=== PATIENT | male | born 1955 | race Caucasian/White ===

== ENCOUNTER 2016-11-23 11:42 | Emergency (ER) | payer OTHER ==
[~2016-11-23] VITALS: Ht 180.3 cm; Wt 95.0 kg
[~2016-11-23 11:42] MED LIST: CEPH500C3 PO; CLOP75 PO; METO50TA PO; ZOCO80TA PO
[2016-11-23 11:44] VITALS: BP 157/76; PULSE 59; RESP 20; TEMP 97.7; O2SAT 95
[2016-11-23] MEDS ORDERED: METO50TA PO (12:09)
[2016-11-23] MEDS ORDERED: SIMV80TA PO (12:09)
[2016-11-23] MEDS ORDERED: KETOROLAC TROMETHAMINE 30 MG/ML (IVP) VIAL IV PUSH ONE (12:15)
[2016-11-23] MEDS ORDERED: ceFAZolin 2 GM PREMIX 50 ML IV ONE (12:15)
[2016-11-23 12:44] LABS: AUTOMATED NEUTROPHIL # 6.4 TH/MM3 (1.8-7.7); BASOPHIL # 0.1 TH/MM3 (0-0.2); BASOPHIL % 0.7 % (0.0-2.0); EOSINOPHIL # 0.3 TH/MM3 (0-0.4); EOSINOPHIL % 3.1 % (0.0-4.0); HEMATOCRIT 43.5 % (39.0-51.0); HEMO FLAGS DIFF FINAL; LYMPH % 21.5 % (9.0-44.0); MEAN CELL VOLUME 88.1 FL (80.0-100.0); MEAN CORPUSCULAR HEMOGLOBIN 30.1 PG (27.0-34.0); MEAN CORPUSCULAR HGB CONC 34.2 % (32.0-36.0); MONO % 7.1 % (0.0-8.0); NEUT % 67.6 % (16.0-70.0); PLATELET COUNT 198 TH/MM3 (150-450); RED BLOOD COUNT 4.94 MIL/MM3 (4.50-5.90); WHITE BLOOD COUNT 9.4 TH/MM3 (4.0-11.0)
--- NOTE | 2016-11-23 12:51 | RADRPT ---
EXAM DATE/TIME: 11/23/2016 12:25 [facility] COMPARISON: No previous studies available for comparison. INDICATIONS : Laceration top of hand. MEDICAL HISTORY : None. SURGICAL HISTORY : None. ENCOUNTER: Initial ACUITY: 1 day PAIN SCORE: 7/10 LOCATION: Left upper extremity FINDINGS: Three view examination of the left hand demonstrates soft tissue swelling without dislocation or frac ture. Radiopaque density dorsally appears to be calcified. No definite foreign body. The carpal bon es appear intact. Prominent degenerative changes visible in the first carpal metacarpal joint. The i nterphalangeal and metacarpophalangeal joints are intact. Bony mineralization is normal. CONCLUSION: Soft tissue swelling. Calcified density posteriorly likely related to old injury. Petr Stephens MD on November 23, 2016 at 12:46 Board Certified Radiologist. This report was verified electronically.
[2016-11-23 13:04] LABS: BICARBONATE 27.5 MEQ/L (21.0-32.0)
--- NOTE | 2016-11-23 14:27 | PD ---
HPI Chief Complaint: Laceration/Skin Injury Time Seen by Provider: 11:56 Travel History International Travel<30 days: No Contact w/Intl Traveler<30days: No Traveled to known affect area: No History of Present Illness HPI 61-year-old male came to the emergency room with history of hand laceration from an old metal wheel that he had put on the saw grinder and it broke and a piece came flying on his left hand. This happened just prior to coming to the emergency room. He was bleeding and he is unable to make a fist. Patient says his last tetanus was one year ago. He does have some pain. He is otherwise a healthy person. He was bleeding quite a bit and had a bandage put in at triage. [facility] Past Medical History Narrative Medical List of her past medical history as reviewed from the nursing note. Cardiac Catheterization: Yes (ANGIOPLASTY) Cardiovascular Problems: Yes High Cholesterol: Yes Diminished Hearing: No Hypertension: Yes Influenza Vaccination: No Social History Alcohol Use: Yes (2-3 BEERS DAILY) Tobacco Use: No Substance Use: No Allergies-Medications (Allergen,Severity, Reaction): Coded Allergies: No Known Allergies (Verified , 11/23/16) Comments No known drug allergies. Reported Meds & Prescriptions Reported Meds & Active Scripts Active Ibuprofen 600 Mg Tab 600 Mg PO Q6H PRN Bactrim DS (Sulfamethoxazole-Trimethoprim) 800-160 Mg Tab 1 Tab PO BID Reported Simvastatin 80 Mg Tab 80 Mg PO DAILY Metoprolol Tartrate 50 Mg Tab 50 Mg PO BID Narrative Medication List of his home medications reviewed from the nursing note. Review of Systems Except as stated in HPI: all other systems reviewed are Neg Physical Exam Narrative GENERAL: Awake, alert, anxious, moderate distress SKIN: Warm and dry. Left dorsum of the middle finger knuckle of the MCP joint there is a 3.5-4 cm laceration vertically. The edges are jagged and it's a deep laceration. There is no active bleeding right now. The extensor tendon is 100% lacerated and the distal tip is visualized from the laceration. The MCP joint can be seen and the head of the third metacarpal cartilage is visible. Patient is unable to flex his finger. He is holding it in an extended position at the MCP and PIP joint. HEAD: Atraumatic. Normocephalic. EYES: Pupils equal and round. No scleral icterus. No injection or drainage. ENT: No nasal bleeding or discharge. Mucous membranes pink and moist. NECK: Trachea midline. No JVD. CARDIOVASCULAR: Regular rate and rhythm. No murmur appreciated. RESPIRATORY: No accessory muscle use. Clear to auscultation. Breath sounds equal bilaterally. GASTROINTESTINAL: Abdomen soft, non-tender, nondistended. Hepatic and splenic margins not palpable. MUSCULOSKELETAL: No obvious deformities. No clubbing. No cyanosis. No edema. NEUROLOGICAL: Awake and alert. No obvious cranial nerve deficits. Motor grossly within normal limits. Normal speech. PSYCHIATRIC: Appropriate mood and affect; insight and judgment normal. Data Data Last Documented VS Vital Signs Date Time Temp Pulse Resp B/P Pulse Ox O2 Delivery O2 Flow Rate FiO2 11/23/16 11:44 97.7 59 20 157/76 95 Room Air Orders Basic Metabolic Panel (Bmp) (11/23/16 12:10) Complete Blood Count With Diff (11/23/16 12:10) Iv Access Insert/Monitor (11/23/16 12:10) Cefazolin 2 Gm Premix (Ancef 2 Gm Premix (11/23/16 12:15) Hand, Complete ([id number]) (11/23/16 ) Ketorolac Inj (Toradol Inj) (11/23/16 12:15) Lidocai-Epi 2%-1:100,000 Inj (Xylocaine- (11/23/16 14:35) Labs Laboratory Tests Test 11/23/16 12:15 White Blood Count 9.4 TH/MM3 Red Blood Count 4.94 MIL/MM3 Hemoglobin 14.9 GM/DL Hematocrit 43.5 % Mean Corpuscular Volume 88.1 FL Mean Corpuscular Hemoglobin 30.1 PG Mean Corpuscular Hemoglobin 34.2 % Concent Red Cell Distribution Width 14.0 % Platelet Count 198 TH/MM3 Mean Platelet Volume 8.8 FL Neutrophils (%) (Auto) 67.6 % Lymphocytes (%) (Auto) 21.5 % Monocytes (%) (Auto) 7.1 % Eosinophils (%) (Auto) 3.1 % Basophils (%) (Auto) 0.7 % Neutrophils # (Auto) 6.4 TH/MM3 Lymphocytes # (Auto) 2.0 TH/MM3 Monocytes # (Auto) 0.7 TH/MM3 Eosinophils # (Auto) 0.3 TH/MM3 Basophils # (Auto) 0.1 TH/MM3 CBC Comment DIFF FINAL Differential Comment Sodium Level 141 MEQ/L Potassium Level 4.0 MEQ/L Chloride Level 106 MEQ/L Carbon Dioxide Level 27.5 MEQ/L Anion Gap 8 MEQ/L Blood Urea Nitrogen 11 MG/DL Creatinine 1.06 MG/DL Estimat Glomerular Filtration 71 ML/MIN Rate Random Glucose 111 MG/DL Calcium Level 9.1 MG/DL MDM Medical Decision Making Medical Screen Exam Complete: Yes Emergency Medical Condition: Yes Medical Record Reviewed: Yes Differential Diagnosis Extensor tendon laceration, complex laceration of the hand, metacarpal fracture , fracture of the phalanx, violation of the joint capsule Narrative Course 2:33 PM I spoke with the hand surgeon after the x-ray was resulted. I described to him the wound and the findings. He was on his way to see the patient and actually he is here and doing a repair in the room. Patient was given 2 g of Ancef IV. Patient will be discharged after the repair is done. Procedures EKG Prior to Arrival: No Diagnosis Primary Impression: Extensor tendon laceration of hand with open wound Qualified Code: S66.822A - Extensor tendon laceration of hand with open wound , left, initial encounter Referrals: Whitney Mitchell MD 1 week Additional Instructions: Follow-up with Dr. Mitchell on Friday at the number and address is provided to you. Keep the splint clean and dry. Please return to the ER if the condition worsens or any other new concerns. Med/Other Pt SpecificInfo: Prescription(s) given Scripts Ibuprofen 600 Mg [id number] Mg PO Q6H PRN (Pain/Inflammation) #40 TAB Ref 0 Prov:Aric Rowell MD 11/23/16 Sulfamethoxazole-Trimethoprim (Bactrim DS)800-160 Mg Tab1 Tab PO BID #20 TAB Ref 0 Prov:Aric Rowell MD 11/23/16 Disposition: 01 DISCHARGE HOME Condition: Stable Aric Rowell MD Nov 23, 2016 14:27
[2016-11-23] MEDS ORDERED: LIDOCAINE 2%/EPINEPHrine 1:100,000 50ML MDV ONE (14:35)
[2016-11-23] MEDS ORDERED: BACT800T5 PO (16:06)
[2016-11-23] MEDS ORDERED: IBUP-232 PO (16:07)
--- NOTE | 2016-11-23 19:05 | MB ---
cc: RAINE GILES M.D.,ARIC Abbasi MD DATE OF CONSULTATION: 11/23/2016. REASON FOR CONSULTATION: Injury to the left hand. REQUESTING PHYSICIAN: The patient is being seen at the request of Dr. Aric Rowell. HISTORY OF PRESENT ILLNESS: The patient is 61-year-old male who was working with an old plate glass grinder which broke apart as he began to use it lacerating his left hand. It was noted that the joint was entered and at the tendon was lacerated. Consultation was requested regarding evaluation and treatment of the wound. PAST MEDICAL HISTORY: 1. The patient has a history of cardiac disease which had angioplasty. 2. He has hypercholesterolemia. 3. Hypertension. SOCIAL HISTORY: The patient drinks two to three beers per day. Denies alcohol or drug abuse. ALLERGIES: NO KNOWN FOOD OR DRUG ALLERGIES. MEDICATIONS: His medications are listed on the chart. REVIEW OF SYSTEMS: His review of systems is negative in twelve systems except as noted above. PHYSICAL EXAMINATION: GENERAL: On examination, the patient is lying comfortably on the stretcher. HEAD, EYES, EARS, NOSE, THROAT: His extraocular muscles are intact. His pupils are equal, round and reactive to light. His mouth is clear. NECK: His neck is supple without masses. LUNGS: Clear. HEART: Regular rate and rhythm. UPPER EXTREMITIES: Examination of his upper extremities reveals a 4.5 cm longitudinal laceration on the dorsal aspect of his left hand. The laceration is on the radial side of the third finger. Exploration of the wound gently reveals significant contamination with bits of the broken plate glass grinder wheel and a laceration to the extensor tendon including the sagittal fibers and the distal extensor tendon. The finger itself is well-perfused. IMAGING STUDIES: X-rays were reviewed. This reveals an avulsion of some of the tissue dorsally and no injury to the head of the metacarpal or foreign material is seen. IMPRESSION: Open wound of the left hand with extensor tendon injury, joint capsule injury and tissue avulsion with significant contamination. PLAN: The patient will be treated in the emergency room. Raine Giles MD Ingrid/FRANSICO /4:42 PM /6:49 PM
--- NOTE | 2016-11-26 11:06 | MP ---
cc: RAINE GILES M.D. DATE OF SURGERY: 11/23/2016 PREOPERATIVE DIAGNOSIS: Open wound, left hand with bony injuries significant contamination and joint capsule injury. POSTOPERATIVE DIAGNOSIS: Open wound, left hand with bony injuries significant contamination and joint capsule injury. OPERATION: 1. Exploration of left hand wound. 2. Removal of contaminated material with removal of several foreign bodies. 3. Repair of joint capsule. 4. Repair of extensor tendon. 5. Repair of sagittal fibers. 6. Debridement of the wound with complex repair of 4.5 cm's. ANESTHESIA: Local. SURGEON Dr. Giles INDICATIONS 61-year-old male who injured his hand at home. Findings at the completion of the procedure the joint capsule had been repaired all foreign material was removed. The sagittal fibers were repaired and the extensor tendon was repaired the wound edges were debrided completely of devitalized tissue and repaired. Operative time was approximately one hour. PROCEDURE: The operation was performed in the emergency room. The patient was in a supine position. The left hand was prepped with Betadine and draped in usual sterile fashion. Lidocaine 2% with epinephrine 1:100,000 was injected into and around the wound. Once anesthetic had taken effect the wound was copiously irrigated with saline. The foreign material was debrided. It was curetted out of the bone. The devitalized tendon was removed as well as the edges of the wound were completely excised. After the wound was cleansed the repair was effected with a 4-0 Mersilene to repair the capsule of the extensor tendon and the sagittal fibers and the skin was closed with 5-0 nylon. Once the wound was closed, hand was cleansed of Betadine and blood placed in into an extended position. After cleansing the hand placing povidone-iodine ointment of the wound along with Telfa, 4x4s hand wrap and a palmar splint to keep the wrist and fingers extended. The patient was then given back to the care of the ER staff of the recommendations for several days of oral antibiotics pain medicine including 800 mg of ibuprofen every 8 hours and follow up in my office in 4 days. The patient is advised to keep his hand elevated, keeping it clean and dry and take anti-inflammatories as recommended. He is to call us if there are any questions or problems. MD ELLA Alberto/elif /4:47 PM /10:44 AM
== END 2016-11-23 17:01 | disposition home or self-care (01) ==
LOC: NEPE 11:42
DX: S66.323A Laceration of extensor muscle, fascia and tendon of left middle finger at wrist and hand level, initial encounter (principal); S61.422A Laceration with foreign body of left hand, initial encounter; E78.00 Pure hypercholesterolemia, unspecified; I10 Essential (primary) hypertension; W31.1XXA Contact with metalworking machines, initial encounter; Y93.89 Activity, other specified; Y92.9 Unspecified place or not applicable
CPT/HCPCS: 11044; 26418; 73130; 80048; 85025; 96365; 96375; 99283; J0690; J1885; 13132

== ENCOUNTER 2017-12-31 11:44 | Observation (INO) | payer OTHER ==
[~2017-12-31 11:44] MED LIST changes: -CEPH500C3 PO; -CLOP75 PO; +SIMV80TA PO; -ZOCO80TA PO
[2017-12-31 12:04] VITALS: BP 178/81; PULSE 63; RESP 18; TEMP 98.9; O2SAT 100
--- NOTE | 2017-12-31 12:34 | RADRPT ---
EXAM DATE/TIME: 12/31/2017 12:21 [facility] COMPARISON: No previous studies available for comparison. INDICATIONS : Positional vertigo RADIATION DOSE: 56.35 CTDIvol (mGy) MEDICAL HISTORY : Cardiovascular disease. Hypertension. SURGICAL HISTORY : None. ENCOUNTER: Initial ACUITY: 1 day PAIN SCALE: 0/10 LOCATION: cranial TECHNIQUE: Multiple contiguous axial images were obtained of the head. Using automated exposure control and adj ustment of the mA and/or kV according to patient size, radiation dose was kept as low as reasonably a chievable to obtain optimal diagnostic quality images. DICOM format image data is available electro nically for review and comparison. FINDINGS: There is mild symmetric cortical atrophy. No evidence of mass or hemorrhage. Nothing to suggest acute infarction. Ventricles are symmetric and normal. Brainstem and posterior fossa structures are normal . Extracranial structures are benign with mild mucosal sinus disease and occasional facial sinuses. CONCLUSION: No acute intracranial findings Usman Doherty MD on December 31, 2017 at 12:29 Board Certified Radiologist. This report was verified electronically.
[2017-12-31] MEDS ORDERED: AMLO10TA2 PO (13:07)
[2017-12-31] MEDS ORDERED: ASPI81CH6 CHEW (13:07)
[2017-12-31 13:39] LABS: AUTOMATED NEUTROPHIL # 6.2 TH/MM3 (1.8-7.7); BASOPHIL # 0.1 TH/MM3 (0-0.2); BASOPHIL % 0.8 % (0.0-2.0); EOSINOPHIL # 0.4 TH/MM3 (0-0.4); EOSINOPHIL % 3.9 % (0.0-4.0); HEMATOCRIT 44.6 % (39.0-51.0); HEMOGLOBIN 15.3 GM/DL (13.0-17.0); LYMPH % 28.9 % (9.0-44.0); MEAN CELL VOLUME 89.3 FL (80.0-100.0); MEAN CORPUSCULAR HEMOGLOBIN 30.6 PG (27.0-34.0); MEAN CORPUSCULAR HGB CONC 34.3 % (32.0-36.0); MEAN PLATELET VOLUME 8.6 FL (7.0-11.0); MONO % 6.8 % (0.0-8.0); MONOCYTE # 0.7 TH/MM3 (0-0.9); NEUT % 59.6 % (16.0-70.0); PLATELET COUNT 218 TH/MM3 (150-450); WHITE BLOOD COUNT 10.3 TH/MM3 (4.0-11.0)
[2017-12-31 13:42] LABS: BILIRUBIN, URINE NEG (NEG); BLOOD, URINE NEG (NEG); GLUCOSE,URINE NEG (NEG); KETONE, URINE NEG (NEG); NITRITE,URINE NEG (NEG); PH, URINE 5.5 (5.0-8.5); URINE COLOR LIGHT-YELLOW (YELLW/STRAW); URINE LEUKOCYTE ESTERASE NEG (NEG)
[2017-12-31 13:48] LABS: INTERNATIONAL NORMALIZED RATIO 1.1 RATIO; PROTHROMBIN TIME - PATIENT 10.7 SEC (9.8-11.6)
[2017-12-31 13:57] LABS: ALT (GPT) 28 U/L (12-78)
[2017-12-31 13:59] LABS: ALBUMIN 4.4 GM/DL (3.4-5.0); AST (GOT) 21 U/L (15-37); BICARBONATE 28.1 MEQ/L (21.0-32.0); BLOOD UREA NITROGEN 12 MG/DL (7-18); CALCIUM 9.3 MG/DL (8.5-10.1); CHLORIDE 104 MEQ/L (98-107); CREATININE 0.97 MG/DL (0.60-1.30); GLOMERULAR FILTRATION RATE 78 ML/MIN (>89); GLUCOSE,RANDOM 98 MG/DL (74-106); MAGNESIUM 2.3 MG/DL (1.5-2.5); SODIUM (NA) 140 MEQ/L (136-145)
[2017-12-31 14:00] LABS: ALKALINE PHOSPHATASE 84 U/L (45-117); TOTAL PROTEIN 8.2 GM/DL (6.4-8.2); TROPONIN I LESS THAN 0.02 NG/ML (0.02-0.05)
[2017-12-31] MEDS ORDERED: ASPIRIN 325 MG TAB PO ONE (14:45)
--- NOTE | 2017-12-31 14:48 | PD ---
HPI Chief Complaint: Dizziness Time Seen by Provider: 14:16 Travel History International Travel<30 days: No Contact w/Intl Traveler<30days: No Traveled to known affect area: No History of Present Illness HPI 62-year-old male that presents to the ED for evaluation of dizziness and possible cardiac complaint. Per patient he has a history of previous ACS. Per patient on 2007 when he had similar symptoms he ended up having a heart attack that required ballooning. Per patient his been having dizziness with movement of the head as well as with standing. Per patient he has not had any chest pressure or pain today but she is has had in the past. Per patient the symptoms have been worsening for the past month and [facility] comes here to get evaluated. Per patient he is never had a stress test. He currently has no chest pain. Patient did took 2 aspirins today. Patient has a history of high cholesterol. Family history of heart disease. All history of smoking. Denies any headache. No blurry vision or double vision. No urinary or bowel movement issues. No other medical issues at this time. PFSH Past Medical History Cardiac Catheterization: Yes (ANGIOPLASTY) Cardiovascular Problems: Yes High Cholesterol: Yes Diminished Hearing: No Hypertension: Yes Social History Alcohol Use: Yes (2-3 BEERS DAILY) Tobacco Use: No Substance Use: No Allergies-Medications (Allergen,Severity, Reaction): Coded Allergies: No Known Allergies (Verified Adverse Reaction, Unknown, 12/31/17) Reported Meds & Prescriptions Reported Meds & Active Scripts Active Reported Aspirin Low Dose (Aspirin) 81 Mg Chew 162 Mg CHEW DAILY Amlodipine (Amlodipine Besylate) 10 Mg Tab 10 Mg PO DAILY Simvastatin 80 Mg Tab 80 Mg PO DAILY Metoprolol Tartrate 50 Mg Tab 50 Mg PO BID Review of Systems Except as stated in HPI: all other systems reviewed are Neg Physical Exam Narrative GENERAL: SKIN: Warm and dry. HEAD: Atraumatic. Normocephalic. EYES: Pupils equal and round. No scleral icterus. No injection or drainage. ENT: No nasal bleeding or discharge. Mucous membranes pink and moist. Tongue is midline. No uvula deviation. NECK: Trachea midline. No JVD. CARDIOVASCULAR: Regular rate and rhythm. No murmurs, S3, S4. RESPIRATORY: No accessory muscle use. Clear to auscultation. Breath sounds equal bilaterally. GASTROINTESTINAL: Abdomen soft, non-tender, nondistended. Hepatic and splenic margins not palpable. MUSCULOSKELETAL: Extremities without clubbing, cyanosis, or edema. No obvious deformities. Full range of motion of the upper and lower extremities bilaterally. 2+ pulses bilaterally. NEUROLOGICAL: Awake and alert. No obvious cranial nerve deficits. Motor grossly within normal limits. Five out of 5 muscle strength in the arms and legs. Normal speech. PSYCHIATRIC: Appropriate mood and affect; insight and judgment normal. Data Data Last Documented VS Vital Signs Date Time Temp Pulse Resp B/P (MAP) Pulse Ox O2 Delivery O2 Flow Rate FiO2 12/31/17 12:04 98.9 63 18 178/81 (113) 100 Orders Orders Electrocardiogram (12/31/17 12:06) Complete Blood Count With Diff (12/31/17 12:06) Comprehensive Metabolic Panel (12/31/17 12:06) Magnesium (Mg) (12/31/17 12:06) Ckmb (Isoenzyme) Profile (12/31/17 12:06) Troponin I (12/31/17 12:06) Act Partial Throm Time (Ptt) (12/31/17 12:06) Prothrombin Time / Inr (Pt) (12/31/17 12:06) Urinalysis - C+S If Indicated (12/31/17 12:06) Ct Brain W/O Iv Contrast(Rout) (12/31/17 12:06) Aspirin (Aspirin) (12/31/17 14:45) Admit Order (Ed Use Only) (12/31/17 14:39) Labs Laboratory Tests Test 12/31/17 13:10 White Blood Count 10.3 TH/MM3 Red Blood Count 5.00 MIL/MM3 Hemoglobin 15.3 GM/DL Hematocrit 44.6 % Mean Corpuscular Volume 89.3 FL Mean Corpuscular Hemoglobin 30.6 PG Mean Corpuscular Hemoglobin Concent 34.3 % Red Cell Distribution Width 14.0 % Platelet Count 218 TH/MM3 Mean Platelet Volume 8.6 FL Neutrophils (%) (Auto) 59.6 % Lymphocytes (%) (Auto) 28.9 % Monocytes (%) (Auto) 6.8 % Eosinophils (%) (Auto) 3.9 % Basophils (%) (Auto) 0.8 % Neutrophils # (Auto) 6.2 TH/MM3 Lymphocytes # (Auto) 3.0 TH/MM3 Monocytes # (Auto) 0.7 TH/MM3 Eosinophils # (Auto) 0.4 TH/MM3 Basophils # (Auto) 0.1 TH/MM3 CBC Comment DIFF FINAL Differential Comment Prothrombin Time 10.7 SEC Prothromb Time International Ratio 1.1 RATIO Activated Partial Thromboplast Time 25.4 SEC Urine Color LIGHT-YELLOW Urine Turbidity CLEAR Urine pH 5.5 Urine Specific [place] 1.005 Urine Protein NEG mg/dL Urine Glucose (UA) NEG mg/dL Urine Ketones NEG mg/dL Urine Occult Blood NEG Urine Nitrite NEG Urine Bilirubin NEG Urine Urobilinogen LESS THAN 2.0 MG/DL Urine Leukocyte Esterase NEG Urine RBC LESS THAN 1 /hpf Microscopic Urinalysis Comment CULT NOT INDICATED Blood Urea Nitrogen 12 MG/DL Creatinine 0.97 MG/DL Random Glucose 98 MG/DL Total Protein 8.2 GM/DL Albumin 4.4 GM/DL Calcium Level 9.3 MG/DL Magnesium Level 2.3 MG/DL Alkaline Phosphatase 84 U/L Aspartate Amino Transf (AST/SGOT) 21 U/L Alanine Aminotransferase (ALT/SGPT) 28 U/L Total Bilirubin 1.0 MG/DL Sodium Level 140 MEQ/L Potassium Level 4.2 MEQ/L Chloride Level 104 MEQ/L Carbon Dioxide Level 28.1 MEQ/L Anion Gap 8 MEQ/L Estimat Glomerular Filtration Rate 78 ML/MIN Total Creatine Kinase 78 U/L Troponin I LESS THAN 0.02 NG/ML MDM Medical Decision Making Medical Screen Exam Complete: Yes Emergency Medical Condition: Yes Medical Record Reviewed: Yes Interpretation(s) CBC & BMP Diagram 12/31/17 13:10 Total Protein 8.2, Albumin 4.4, Calcium Level 9.3, Magnesium Level 2.3, Alkaline Phosphatase 84, Aspartate Amino Transf (AST/SGOT) 21, Alanine Aminotransferase (ALT/SGPT) 28, Total Bilirubin 1.[address] 12/31/17 1206 Signed Impressions: Service Date/Time: Sunday, December 31, 2017 12:21 - CONCLUSION: No acute intracranial findings Usman Doherty MD troponin and CKMB negative EKG shows sinus bradycardia but no sign of acute ischemia or arrhythmia read by me and attending. Differential Diagnosis Angina versus ACS versus dizziness versus vertigo versus CVA versus electrolyte abnormality versus dehydration Narrative Course 62-year-old male that presents to the ED for evaluation of dizziness and possible cardiac complaint. Patient was properly examined and was found to have signs and symptoms of unclear etiology. Does appear to some more like vertigo. Patient for she does have risk factors for heart disease and states that he had the same symptoms when he had his previous cardiac event requiring ballooning. Per patient his concern for the same. This could be angina equivalent. Patient currently is symptomatic so nitroglycerin was not given. Patient was given a full aspirin. Case was discussed in my attending who recommends admission to chest pain center for chest pain center rule out as well as possible stress test. Patient agrees with this plan. Patient was admitted to the chest pain center. Procedures EKG Prior to Arrival: No Diagnosis Primary Impression: Equivalent angina Admitting Information Admitting Physician Requests: Observation Jose Antonio Moreno Dec 31, 2017 14:48
[2017-12-31 15:29] VITALS: BP_SYST 158; PULSE 65; RESP 13; TEMP 98.6; O2SAT 98
--- NOTE | 2017-12-31 16:14 | HHI.HP ---
HPI [facility] Chief Complaint Dizziness and chest pain History of Present Illness This is a 62-year-old male that presents to ED with history of CAD with a stent to the RCA in 2007 that presents with complaint of chest discomfort and dizziness. Patient states that he has been having dizziness for the past year to 18 months but has been progressively worsening. He states the dizziness is worsened with repositioning of his head. He also has had intermittent central chest heaviness over the last 6 months. Nothing in particular brings it on. States would last a quick minute and then resolved. No associated shortness of breath, nausea, or diaphoresis. He states that these are the same symptoms he had when needing cardiac catheterization in 2008. Denies recent illness. Denies fevers or chills. Voices compliance with his medications. Review of Systems General: Patient denies fevers, chills, and recent travel. HEENT: Patient denies headache, sore throat, difficulty swallowing. Cardiovascular: Has the chest discomfort as mentioned above. Denies sensation of heart beating rapidly or irregularly. No syncope. Denies diaphoresis. Respiratory: Denies shortness of breath or inspirational chest discomfort. Denies coughing wheezing or hemoptysis. GI: Patient denies nausea, vomiting, diarrhea, abdominal pain, bloody stools. Musculoskeletal: Patient denies joint pain or edema. Denies calf pain or edema. Neurovascular: Complains of dizziness. Patient denies numbness, tingling, weakness in extremities. Denies headache. Endocrine: Denies polyuria and polydipsia. Hematologic: Denies easy bruising. Skin: Denies rash or itching. Past Family Social History Allergies: Coded Allergies: No Known Allergies (Verified Allergy, Unknown, 12/31/17) Past Medical History CAD with stent in 2007. Hypertension, hyperlipidemia. Denies diabetes. Past tobacco abuse but quit smoking 26 years ago. Past Surgical History Cardiac catheterization in 2007 with stent of the RCA. Reported Medications Reported Meds & Active Scripts Active Reported Aspirin Low Dose (Aspirin) 81 Mg Chew 162 Mg CHEW DAILY Amlodipine (Amlodipine Besylate) 10 Mg Tab 10 Mg PO DAILY Simvastatin 80 Mg Tab 80 Mg PO DAILY Metoprolol Tartrate 50 Mg Tab 50 Mg PO BID Active Ordered Medications Current Medications Medications (Trade) Dose Ordered Sig/Cresencio Route Start Time Stop Time Status Last Admin (Tylenol) 500 mg Q4H PRN PO 12/31/17 16:15 UNV ([place] 7.5-325 Mg) 1 tab Q4H PRN PO 12/31/17 16:15 UNV (Zofran Inj) 4 mg Q6H PRN IV PUSH 12/31/17 16:15 UNV (Aspirin) 325 mg DAILY PO 01/01/18 09:00 (Xanax) 0.25 mg Q8H PRN PO 12/31/17 16:15 UNV Family History Denies family history of CAD. Social History Quit smoking 26 years ago. Has occasional alcohol. Denies illicit drug use. Physical Exam Vital Signs Vital Signs Date Time Temp Pulse Resp B/P (MAP) Pulse Ox O2 Delivery O2 Flow Rate FiO2 12/31/17 15:29 98.6 65 13 158/ 98 Room Air 12/31/17 15:08 Room Air 12/31/17 12:04 98.9 63 18 178/81 (113) 100 Physical Exam GENERAL: This is a well-nourished, well-developed patient, in no apparent distress. Patient speaks in clear complete sentences. Patient is pleasant. HEENT: Head is atraumatic and normocephalic. Neck is supple without lymphadenopathy and trachea is midline. No JVD or carotid bruits. CARDIOVASCULAR: Regular rate and rhythm without murmurs, gallops, or rubs. RESPIRATORY: Clear to auscultation. Breath sounds equal bilaterally. No wheezes , rales, or rhonchi. Chest wall is nontender. No use of accessory muscles. GASTROINTESTINAL: Abdomen is nontender, nondistended. Abdomen soft. No obvious pulsatile mass or bruit. No CVA tenderness. Strong femoral pulses bilaterally. Normal bowel sounds in all quadrants. MUSCULOSKELETAL: Patient is moving upper and lower extremities freely. No calf tenderness or edema, no Homans sign. Strong pulses in upper and lower extremities. NEUROLOGICAL: Patient is alert and oriented. Cranial nerves 2-12 are grossly intact. No focal deficits and speech is clear. SKIN: No rash and turgor is normal. Laboratory Laboratory Tests Test 12/31/17 13:10 White Blood Count 10.3 Red Blood Count 5.00 Hemoglobin 15.3 Hematocrit 44.6 Mean Corpuscular Volume 89.3 Mean Corpuscular Hemoglobin 30.6 Mean Corpuscular Hemoglobin Concent 34.3 Red Cell Distribution Width 14.0 Platelet Count 218 Mean Platelet Volume 8.6 Neutrophils (%) (Auto) 59.6 Lymphocytes (%) (Auto) 28.9 Monocytes (%) (Auto) 6.8 Eosinophils (%) (Auto) 3.9 Basophils (%) (Auto) 0.8 Neutrophils # (Auto) 6.2 Lymphocytes # (Auto) 3.0 Monocytes # (Auto) 0.7 Eosinophils # (Auto) 0.4 Basophils # (Auto) 0.1 CBC Comment DIFF FINAL Differential Comment Prothrombin Time 10.7 Prothromb Time International Ratio 1.1 Activated Partial Thromboplast Time 25.4 Urine Color LIGHT-YELLOW Urine Turbidity CLEAR Urine pH 5.5 Urine Specific [place] 1.005 Urine Protein NEG Urine Glucose (UA) NEG Urine Ketones NEG Urine Occult Blood NEG Urine Nitrite NEG Urine Bilirubin NEG Urine Urobilinogen LESS THAN 2.0 Urine Leukocyte Esterase NEG Urine RBC LESS THAN 1 Microscopic Urinalysis Comment CULT NOT INDICATED Blood Urea Nitrogen 12 Creatinine 0.97 Random Glucose 98 Total Protein 8.2 Albumin 4.4 Calcium Level 9.3 Magnesium Level 2.3 Alkaline Phosphatase 84 Aspartate Amino Transf (AST/SGOT) 21 Alanine Aminotransferase (ALT/SGPT) 28 Total Bilirubin 1.0 Sodium Level 140 Potassium Level 4.2 Chloride Level 104 Carbon Dioxide Level 28.1 Anion Gap 8 Estimat Glomerular Filtration Rate 78 Total Creatine Kinase 78 Troponin I LESS THAN 0.02 Result Diagram: 12/31/17 1310 12/31/17 1310 Imaging Last [address] 12/31/17 1206 Signed Impressions: Service Date/Time: Sunday, December 31, 2017 12:21 - CONCLUSION: No acute intracranial findings Usman Doherty MD Course Initial EKG is sinus bradycardia rate [address] segment depressions or elevations. Caprini VTE Risk Assessment Caprini VTE Risk Assessment: Mod/High Risk (score >= 2) Caprini Risk Assessment Model Point Value = 1 Point Value = 2 Point Value = 3 Point Value = 5 Age 41-60 Minor surgery BMI > 25 kg/m2 Swollen legs Varicose veins or History of unexplained or recurrent spontaneous Oral contraceptives or hormone replacement Sepsis (< 1 month) Serious lung disease, including pneumonia (< 1 month) Abnormal pulmonary function Acute myocardial infarction Congestive heart failure (< 1 month) History of inflammatory bowel disease Medical patient at bed rest Age 61-74 Arthroscopic surgery Major open surgery (> 45 min) Laparoscopic surgery (> 45 min) Malignancy Confined to bed (> 72 hours) Immobilizing plaster cast Central venous access Age >= 75 History of VTE Family history of VTE Factor V Leiden Prothrombin [id number] Lupus anticoagulant Anticardiolipin antibodies Elevated serum homocysteine Heparin-induced thrombocytopenia Other congenital or acquired thrombophilia Stroke (< 1 month) Elective arthroplasty Hip, pelvis, or leg fracture Acute spinal cord injury (< 1 month) Prophylaxis Regimen Total Risk Factor Score Risk Level Prophylaxis Regimen 0-1 Low Early ambulation 2 Moderate Order ONE of the following: *Sequential Compression Device (SCD) *Heparin 5000 units SQ BID 3-4 Higher Order ONE of the following medications: *Heparin 5000 units SQ TID *Enoxaparin/Lovenox 40 mg SQ daily (WT < 150 kg, CrCl > 30 mL/min) *Enoxaparin/Lovenox 30 mg SQ daily (WT < 150 kg, CrCl > 10-29 mL/min) *Enoxaparin/Lovenox 30 mg SQ BID (WT < 150 kg, CrCl > 30 mL/min) AND/OR *Sequential Compression Device (SCD) 5 or more Highest Order ONE of the following medications: *Heparin 5000 units SQ TID (Preferred with Epidurals) *Enoxaparin/Lovenox 40 mg SQ daily (WT < 150 kg, CrCl > 30 mL/min) *Enoxaparin/Lovenox 30 mg SQ daily (WT < 150 kg, CrCl > 10-29 mL/min) *Enoxaparin/Lovenox 30 mg SQ BID (WT < 150 kg, CrCl > 30 mL/min) AND *Sequential Compression Device (SCD) Assessment and Plan Assessment and Plan * Chest pain: Patient will continue to have serial cardiac enzymes and EKGs for ruling out purposes. He will be seen by Dr. Alfonzo Brown of cardiology in the chest pain center. He will have a stress test in the morning if his cardiac enzymes and EKGs ruled him out. To be discharged if his stress test is nonischemic with instructions to follow-up with PCP and dish carrier. Return to ED for interval issues. * Hypertension: Continue current medication. * Hyperlipidemia: Continue current medication. * CAD: We will reassess with stress testing. Patient is stable at this time. He is agreeable to this plan. Fabricio Sauer Dec 31, 2017 16:14
[2017-12-31] MEDS ORDERED: ACETAMINOPHEN/HYDROcodone 325 MG/7.5 MG TAB PO PRN (16:15)
[2017-12-31] MEDS ORDERED: ONDANSETRON HCL 4 MG/2 ML VIAL IV PUSH PRN (16:15)
[2017-12-31] MEDS ORDERED: ALPRAZolam 0.25 MG TAB PO PRN (16:15)
[2017-12-31] MEDS ORDERED: MECLIZINE HCL 25 MG TAB PO PRN (16:15)
[2017-12-31] MEDS ORDERED: ACETAMINOPHEN 500 MG CPLT PO PRN (16:15)
--- NOTE | 2017-12-31 16:40 | RADRPT ---
EXAM DATE/TIME: 12/31/2017 16:13 [facility] COMPARISON: No previous studies available for comparison. INDICATIONS : Chest pain. MEDICAL HISTORY : Cardiovascular disease. Hypertension Myocardial infarction. SURGICAL HISTORY : None. ENCOUNTER: Initial ACUITY: 1 day PAIN SCORE: 0/10 LOCATION: Bilateral chest FINDINGS: The right lung is clear. There is elevation of the left hemidiaphragm and minimal parenchymal change s left base. The heart and pulmonary vascularity are normal. The portion of the bony skeleton visuali zed is unremarkable. CONCLUSION: Minimal elevation left hemidiaphragm with minimal pregnancies and left base Jesus Woo MD FACR on December 31, 2017 at 16:36 Board Certified Radiologist. This report was verified electronically.
[2017-12-31 17:06] LABS: TROPONIN I LESS THAN 0.02 NG/ML (0.02-0.05)
[2017-12-31 18:45] VITALS: BP 151/77; PULSE 65; RESP 18; TEMP 97.8; O2SAT 96
[2017-12-31] MEDS: METOPROLOL TARTRATE 50 MG TAB PO SCH (20:48)
[2017-12-31 21:28] VITALS: BP 150/82; PULSE 52; RESP 14; TEMP 97.8; O2SAT 98
[2017-12-31 21:35] LABS: TROPONIN I LESS THAN 0.02 NG/ML (0.02-0.05)
[2018-01-01 04:34] VITALS: BP 128/71; PULSE 56; RESP 14; TEMP 98; O2SAT 98
[2018-01-01 08:15] VITALS: BP 140/72; PULSE 65; RESP 18; TEMP 97.6; O2SAT 95
[2018-01-01] MEDS ORDERED: ATORVASTATIN 40 MG TAB PO SCH (09:00)
[2018-01-01] MEDS ORDERED: NON-FORMULARY DRUG (Simvastatin 80 MG) PO SCH (09:00)
[2018-01-01] MEDS ORDERED: ASPIRIN 325 MG TAB PO SCH (09:00)
[2018-01-01] MEDS ORDERED: REGADENOSON INJ 0.4 MG/5 ML SYR ONE (09:20)
[2018-01-01] MEDS: METOPROLOL TARTRATE 50 MG TAB PO SCH (10:28)
--- NOTE | 2018-01-01 10:38 | EKG ---
Date Performed: 12/31/2017 Time Performed: 22:49:57 PTAGE: 62 years EKG: Sinus rhythm INFERIOR MYOCARDIAL INFARCTION ABNORMAL ECG No change PREVIOUS TRACING : 12/31/2017 16.16 DOCTOR: Usama Bassett Interpretating Date/Time 01/01/2018 10:37:05
--- NOTE | 2018-01-01 10:40 | EKG ---
Date Performed: 12/31/2017 Time Performed: 16:16:15 PTAGE: 62 years EKG: Sinus rhythm Possible INFERIOR MYOCARDIAL INFARCTION age undetermined ABNORMAL ECG No change PREVIOUS TRACING : 12/31/2017 13.06 DOCTOR: Usama Bassett Interpretating Date/Time 01/01/2018 10:39:54
--- NOTE | 2018-01-01 10:41 | EKG ---
Date Performed: 12/31/2017 Time Performed: 13:06:58 PTAGE: 62 years EKG: SINUS BRADYCARDIA Possible INFERIOR MYOCARDIAL INFARCTION age undetermined ABNORMAL ECG No significant change PREVIOUS TRACING : 04/22/2008 09.05 DOCTOR: Usama Bassett Interpretating Date/Time 01/01/2018 10:40:21
--- NOTE | 2018-01-01 11:10 | RADRPT ---
EXAM DATE/TIME: 01/01/2018 09:00 [facility] COMPARISON: No previous studies available for comparison. INDICATIONS : Mid chest pain with dizziness for six months. Angina. Coronary artery disease. DOSE: 26.5 mCi Tc99m Myoview at stress. 8.8 mCi Tc99m Myoview at rest. 0.4 mg Lexiscan STRESS SYMPTOMS: None. EJECTION FRACTION: 67% MEDICAL HISTORY : Hypertension. SURGICAL HISTORY : Coronary artery stent. ENCOUNTER: Initial ACUITY: 4 - 6 months PAIN SCALE: 5/10 LOCATION: Midsternal chest TECHNIQUE: The patient underwent pharmacologic stress with infusion of prescribed dose. Continuous ECG tracing was monitored during stress. Gated SPECT imaging was performed after stress and conventional SPECT i maging was performed at rest. The examination was performed on a SPECT/CT scanner, both attenuation and non-corrected datasets were reviewed. FINDINGS: DISTRIBUTION: The maximum perfused segment at stress is in the septal wall. PERFUSION STUDY: There is a moderate sized area of moderately diminished relative perfusion involving the posterior ba kayode and inferior wall, not quite extending to the apex. There is no evidence of redistribution GATED STUDY: There is intact wall motion and thickening without hypokinetic or dyskinetic segments. CONCLUSION: Moderate size fixed posterior basal and inferior wall perfusion abnormality without evidence of ische rey. RISK CATEGORY: Low (<1% Annual Mortality Rate) Usman Doherty MD on January 01, 2018 at 11:01 Board Certified Radiologist. This report was verified electronically.
--- NOTE | 2018-01-01 11:14 | HHI.DCPOC ---
Discharge Care Plan Diagnosis: (1) Chest pain (2) CAD (coronary artery disease) (3) H/O heart artery stent (4) Hyperlipidemia (5) Hypertension Goals to Promote Your Health * To prevent worsening of your condition and complications * To maintain your health at the optimal level Directions to Meet Your Goals Take your medications as prescribed Follow your dietary instruction Follow activity as directed Keep your appointments as scheduled Take your immunizations and boosters as scheduled If your symptoms worsen call your PCP, if no PCP go to Urgent Care Center or Emergency Room Smoking is Dangerous to Your Health. Avoid second hand smoke Call the 24-hour hour crisis hotline for domestic abuse at Fabricio Sauer Jan 01, 2018 11:14
--- NOTE | 2018-01-02 11:18 | TR ---
Date Performed: 01/01/2018 Time Performed: 09:21:30 DOCTOR: Usama Bassett DRUG LIST: CLINICAL HISTORY: REASON FOR TEST: REASON FOR ENDING: OBSERVATION: CONCLUSION: Lexiscan stress test was performed under standard four minute protocol. Radionuclide was injected one minute prior to ending the test. No electrocardiographic abormalities were present to suggest ischemia. Nuclear imaging and interpretation are pending. COMMENTS:
== END 2018-01-01 12:31 | disposition home or self-care (01) ==
LOC: NEDAMB 11:44 → NEDA 14:40 → NEPGCP 17:43
PROVIDERS: ADMIT Internal Medicine Cardiovascular Disease; ATTEND Internal Medicine Cardiovascular Disease
DX: R07.89 Other chest pain (principal); I25.118 Atherosclerotic heart disease of native coronary artery with other forms of angina pectoris; I10 Essential (primary) hypertension; E78.00 Pure hypercholesterolemia, unspecified; R42 Dizziness and giddiness; R00.1 Bradycardia, unspecified; I25.2 Old myocardial infarction; Z95.5 Presence of coronary angioplasty implant and graft; Z87.891 Personal history of nicotine dependence; Z79.899 Other long term (current) drug therapy
CPT/HCPCS: 70450; 71045; 78452; 80053; 81001; 82550; 83735; 84484; 85025; 85610; 85730; 93005; 93017; 99285; A9502; G0378; J2785